=== PATIENT | male | born 1970 | race Caucasian/White ===

== ENCOUNTER 2025-04-27 12:39 | Outpatient (CLI) | payer MEDICAID, SELFPAY ==
--- NOTE | 2025-04-27 13:00 | CRLHL7_ITS ---
For Patients: As a result of the Cures Act, medical imaging exams and procedure reports are released immediately into your electronic medical record. You may view this report before your referring provider. If you have questions, please contact your health care provider. CLINICAL INDICATION: Elevated PSA. TECHNIQUE: MRI of the prostate on a 1.5T machine with T1, T2, diffusion-weighted and dynamic post-contrast images obtained. Backpack post-processing software was used for image analysis. FINDINGS: The prostate midline length = 4.2 cm, width at base = 2.9 cm, mid = 3.0 cm, apex = 2.2 cm. Estimated volume = 19 cc. No suspicious lesions identified in the prostate gland. No swetha-prostatic or pelvic side wall adenopathy. No other bony or soft tissue abnormalities identified. IMPRESSION: 1. No suspicious lesions identified in the prostate gland. REFERENCE: PI-RADS Prostate Imaging - Reporting and Data System 2015 version 2. ACR, the [employer]. Dictated by Stuart Wade MD @ 04/28/2025 9:16:09 AM (Electronically Signed)
== END 2025-04-27 12:40 | disposition home or self-care (01) ==
LOC: MRI 12:40
PROVIDERS: PCP Nurse Practitioner Family; Visit Provider Urology
DX: R97.20 Elevated prostate specific antigen [PSA] (principal)
CPT/HCPCS: 72197; A9575

== ENCOUNTER 2025-05-05 11:54 | Outpatient (CLI) | payer MEDICAID, SELFPAY | END 2025-05-05 11:55 | disposition home or self-care (01) | LOC: FRMREF 11:55 | PROVIDERS: PCP Nurse Practitioner Family; Visit Provider Nurse Practitioner Family | DX: E66.9 Obesity, unspecified (principal); Z68.42 Body mass index [BMI] 45.0-49.9, adult | CPT/HCPCS: 84403 ==